=== PATIENT | female | born 1990 | race Two or more races ===

== ENCOUNTER 2016-09-01 18:42 | Emergency (ER) | payer MEDICAID ==
[2016-09-01 19:29] LABS: HCG,QUALITATIVE URINE NEGATIVE
[2016-09-01] MEDS ORDERED: DEXAMETHASONE 4 MG TABLET ONE (19:41)
--- NOTE | 2016-09-01 20:18 | RAD ---
EXAMINATION:CHEST - 2 VIEWS CLINICAL INDICATION: Cough and sore throat for 3 days COMPARISON:none FINDINGS: The cardiomediastinal silhouette is within normal limits. There is no adenopathy identified. There is no pleural effusion. The lungs are clear. The osseous structures are unremarkable for age. Bilateral breast implant shadows are noted. IMPRESSION: Negative PA and lateral views of the chest. No acute cardiopulmonary process is identified.
== END 2016-09-01 20:51 | disposition home or self-care (01) ==
LOC: ED 18:42
DX: J09.X2 Influenza due to identified novel influenza A virus with other respiratory manifestations (principal); R05 Cough; J02.9 Acute pharyngitis, unspecified
CPT/HCPCS: 81025; 87880; 71020; 87804; 99283 ×2; A9270